=== PATIENT | male | born 1985 | race Caucasian/White ===

== ENCOUNTER 2018-02-16 13:48 | Emergency (ER) | payer OTHER ==
[2018-02-16] MEDS: IBUPROFEN 600 MG TAB PO (14:40)
[2018-02-16] MEDS: HYDROCODONE/APAP (5/325) TAB PO (14:40)
[2018-02-16] MEDS: DIPHTH/TET/ACEL PERTUSS (ADULT) 0.5 ML VIAL IM* (14:41)
== END 2018-02-16 16:09 | disposition home or self-care (01) ==
LOC: FTE 13:48
DX: S50.311A Abrasion of right elbow, initial encounter (principal); S60.512A Abrasion of left hand, initial encounter; S90.812A Abrasion, left foot, initial encounter; S80.212A Abrasion, left knee, initial encounter; V49.40XA Driver injured in collision with unspecified motor vehicles in traffic accident, initial encounter; Z23 Encounter for immunization
CPT/HCPCS: 73562; 73630-LT; 90471; 90715; 99283-25

== ENCOUNTER 2018-08-27 15:36 | Emergency (ER) | payer SELFPAY, OTHER | END 2018-08-27 20:04 | disposition left against medical advice (07) | LOC: FTE 15:36 → E/R 20:04 | DX: Z53.21 Procedure and treatment not carried out due to patient leaving prior to being seen by health care provider (principal) ==